=== PATIENT | female | born 1960 | race African-American/Black ===

== ENCOUNTER 2016-11-17 11:38 | Emergency (ER) | payer MEDICAID, SELFPAY ==
[~2016-11-17] VITALS: Ht 165.1 cm; Wt 53.6 kg
[2016-11-17 11:49] VITALS: BP 137/70
[2016-11-17] MEDS ORDERED: AZITHROMYCIN 500 MG TABLET PO ONE (12:30)
[2016-11-17] MEDS ORDERED: CEFTRIAXONE 250 MG IM ONE (12:30)
[2016-11-17] MEDS ORDERED: PROP10TA PO (12:33)
[2016-11-17] MEDS ORDERED: AMLO5TAB2 PO (12:33)
[2016-11-17] MEDS ORDERED: CEFTRIAXONE 250 MG ONE (12:39)
[2016-11-17] MEDS ORDERED: LIDOCAINE 1%, 20ML ONE (12:40)
[2016-11-17] MEDS ORDERED: AZITHROMYCIN 250 MG TABLET ONE (12:40)
[2016-11-17 13:28] LABS: BLOOD UREA NITROGEN 13 mg/dL (7-18)
== END 2016-11-17 14:22 | disposition left against medical advice (07) ==
LOC: ED 12:32
DX: N89.8 Other specified noninflammatory disorders of vagina (principal); R10.2 Pelvic and perineal pain
CPT/HCPCS: 36415; 76830; 80048; 81001; 82040; 85025; 87086; 87210; 87491; 87591; 87808; 96372; 99285; J0696